=== PATIENT | female | born 1975 | race Caucasian/White ===

== ENCOUNTER 2019-01-15 12:03 | Emergency (ER) | payer OTHER, MEDICAID ==
[~2019-01-15] VITALS: Ht 162.6 cm; Wt 59.0 kg
[2019-01-15 12:03] VITALS: BP_SYST 106
--- NOTE | 2019-01-15 12:05 | NUR ---
BROUGHT IN BY [facility], TRIAGED, VSS, PT TO WAITING ROOM AWAITING OPEN BED
--- NOTE | 2019-01-15 13:47 | NUR ---
BROUGHT BACK TO HALLWAY BED. REPORT GIVEN TO PERRY
--- NOTE | 2019-01-15 13:50 | NUR ---
Pt AAOx4 ambulated into ED c/o generalized itching s/p eating [employer]. Pt also c/o having anxiety attacks and not being able to sleep x 3 days r/t running out of rx xanax. Pt has an appointment with psychiatrist next week. No other injuries/complaints per pt/noted. Will continue to monitor.
--- NOTE | 2019-01-15 13:55 | NUR ---
DR RALPH AT BEDSIDE FOR EVALUATION
--- NOTE | 2019-01-15 14:05 | NUR ---
TRACY Womack at bedside examining patient.
[2019-01-15] MEDS ORDERED: ALPRAZolam 0.25 MG TABLET PO ONE (14:15)
[2019-01-15] MEDS ORDERED: DIPHENHYDRAMINE HCL 25 MG CAPSULE PO ONE (14:15)
[2019-01-15 14:19] VITALS: BP_SYST 109
--- NOTE | 2019-01-15 14:19 | NUR ---
Patient given written and verbal discharge instructions and verbalizes understanding. ER MD Womack discussed with patient the results and treatment provided. Patient in stable condition. ID arm band removed. Rx of Benadryl given. Patient educated on pain management and to follow up with PMD. Pain Scale 0. Opportunity for questions provided and answered. Medication side effect fact sheet provided.
== END 2019-01-15 14:19 | disposition home or self-care (01) ==
LOC: SED 12:03
DX: F41.9 Anxiety disorder, unspecified (principal); L29.9 Pruritus, unspecified
CPT/HCPCS: 81025; 99284; Q0163

== ENCOUNTER 2023-10-21 05:19 | Emergency (ER) | payer MEDICAID, OTHER ==
[~2023-10-21] VITALS: Ht 162.6 cm; Wt 59.0 kg
[2023-10-21 05:35] VITALS: BP_SYST 134; PULSE 79; RESP 16; TEMP 98.4; O2SAT 99
[2023-10-21] MEDS: methocarbamoL 500 MG TABLET PO ONE (06:26)
[2023-10-21] MEDS: ACETAMINOPHEN 325 MG TABLET PO ONE (06:26)
[2023-10-21] MEDS ORDERED: CYCL10TA24 PO (07:30)
[2023-10-21 07:42] VITALS: BP_SYST 103; PULSE 78; RESP 16; TEMP 97.8; O2SAT 96
== END 2023-10-21 08:06 | disposition home or self-care (01) ==
LOC: SED 05:19
DX: M79.661 Pain in right lower leg (principal); Z79.899 Other long term (current) drug therapy
CPT/HCPCS: 93971; 99284

== ENCOUNTER → 2024-01-29 | Emergency (ER) | payer OTHER, MEDICAID ==
[~2024-01-29] VITALS: Ht 167.6 cm; Wt 63.5 kg
[~2024-01-29] MED LIST: CYCL10TA24 PO
[2024-01-29 00:51] VITALS: BP_SYST 120; PULSE 71; RESP 17; TEMP 97; O2SAT 99
[2024-01-29 00:52] VITALS: BP_SYST 117; PULSE 75; RESP 20; TEMP 97; O2SAT 98
[2024-01-29 04:00] LABS: BASOPHILS % (AUTO) 1.2 % (0.0-2.0); EOSINOPHILS # (AUTO) 0.1 K/uL (0.0-0.4); EOSINOPHILS % (AUTO) 2.3 % (0.0-4.0); HEMATOCRIT 35.9 % (36-48); HEMOGLOBIN 12.4 g/dL (12.0-16.0); LYMPHOCYTES # (AUTO) 1.1 K/uL (1.0-5.5); LYMPHOCYTES % (AUTO) 34.5 % (20.5-51.5); MEAN CORPUSCULAR HEMOGLOBIN 34 pg (27-31); MEAN CORPUSCULAR HGB CONC 35 % (32-36); MEAN CORPUSCULAR VOLUME 99 fL (79.0-98.0); MONOCYTES # (AUTO) 0.4 K/uL (0.0-1.0); MONOCYTES % (AUTO) 13.1 % (1.7-9.3); NEUTROPHILS # (AUTO) 1.6 K/uL (1.8-7.7); NEUTROPHILS % (AUTO) 48.9 % (40.0-70.0); PLATELET COUNT (AUTO) 199 K/uL (130-430); RED BLOOD CELL COUNT(AUTO) 3.64 MIL/uL (4.2-6.2); RED CELL DISTRIBUTION WIDTH 14.7 % (9.0-15.0); WHITE BLOOD COUNT (AUTO) 3.2 K/uL (4.8-10.8)
[2024-01-29 04:04] LABS: CREATININE 0.88 mg/dL (0.55-1.30); POTASSIUM 3.9 mmol/L (3.5-5.1)
== END | disposition home or self-care (01) ==
LOC: SED 00:44
DX: S90.822A Blister (nonthermal), left foot, initial encounter (principal); S90.821A Blister (nonthermal), right foot, initial encounter; F41.9 Anxiety disorder, unspecified; Z79.899 Other long term (current) drug therapy; Z59.00 Homelessness unspecified; X58.XXXA Exposure to other specified factors, initial encounter; Y93.01 Activity, walking, marching and hiking; Y92.89 Other specified places as the place of occurrence of the external cause; Y99.8 Other external cause status
CPT/HCPCS: 36415; 80048; 85025; 99283